=== PATIENT | female | born 1985 | race Two or more races ===

== ENCOUNTER 2018-03-14 23:28 | Emergency (ER) | payer BC ==
[2018-03-14 23:33] VITALS: TEMP 98.4; O2SAT 100
[2018-03-15 00:27] LABS: BASO # 0.1 K/uL (0.0-0.2); BASO % 0.6 % (0.0-2.0); EOS # 0.2 K/uL (0.0-0.7); EOS % 1.7 % (0.0-4.0); HEMOGLOBIN 11.8 g/dL (12.0-16.0); LYMPH # 2.9 K/uL (1.0-4.3); LYMPH % 26.3 % (20.0-40.0); MEAN CELL VOLUME 88.5 fl (81.0-99.0); MEAN CORPUSCULAR HEMOGLOBIN 30.1 pg (27.0-31.0); MEAN PLATELET VOLUME 7.9 fl (7.2-11.7); MONO # 0.9 K/uL (0.0-0.8); NEUT # 6.9 K/uL (1.8-7.0); NEUT % 63.4 % (50.0-75.0); RBC 3.92 Mil/uL (3.80-5.20); RED CELL DISTRIBUTION WIDTH 14.3 % (11.5-14.5)
--- NOTE | 2018-03-15 00:29 | ED PDOC ---
HPI: Psych/Substance Abuse Time Seen by Provider: 03/14/18 23:36 Chief Complaint (Nursing): Substance Abuse Chief Complaint (Provider): Light Headedness, Dizziness, Nausea History Per: Patient History/Exam Limitations: no limitations Onset/Duration Of Symptoms: Hrs (x2) Current Symptoms Are (Timing): Still Present Additional History Per: EMS Additional Complaint(s): 32 year old female with no pmhx presents to the ED for evaluation of nausea, light headedness, and dizziness for the past two hours after eating a cookie containing marijuana. Pt states she was aware there was marijuana in the cookie, but has never previously had any of the substance before. Otherwise, she denies chest pain, vomiting, and associated drug or alcohol use. PMD: Jol[place] Past Medical History Reviewed: Historical Data, Nursing Documentation, Vital Signs Vital Signs: Last Vital Signs Temp 98.4 F 03/14/18 23:29 Pulse 132 H 03/14/18 23:29 Resp 18 03/14/18 23:29 BP 141/73 03/14/18 23:29 Pulse Ox 100 03/14/18 23:29 - Medical History PMH: No Chronic Diseases - Surgical History Surgical History: No Surg Hx - Family History Family History: States: Unknown Family Hx - Social History Current smoker - smoking cessation education provided: No Alcohol: Occasional Drugs: Cannabis - Allergies Allergies/Adverse Reactions: Allergies Allergy/AdvReac Type Severity Reaction Status Date / Time No Known Allergies Allergy Verified 03/14/18 23:33 Review of Systems ROS Statement: Except As Marked, All Systems Reviewed And Found Negative Cardiovascular: Positive for: Light Headedness. Negative for: Chest Pain Gastrointestinal: Positive for: Nausea. Negative for: Vomiting Neurological: Positive for: Dizziness Physical Exam - Reviewed Nursing Documentation Reviewed: Yes Vital Signs Reviewed: Yes - Physical Exam Appears: Positive for: No Acute Distress (but anxious appearing) Head Exam: Positive for: ATRAUMATIC, NORMOCEPHALIC Skin: Positive for: Normal Color, Warm, Dry Eye Exam: Positive for: Normal appearance ENT: Positive for: Normal ENT Inspection Neck: Positive for: Normal, Painless ROM, Supple Cardiovascular/Chest: Positive for: Regular Rate, Rhythm. Negative for: Murmur Respiratory: Positive for: Normal Breath Sounds. Negative for: Accessory Muscle Use, Respiratory Distress Gastrointestinal/Abdominal: Positive for: Normal Exam, Soft. Negative for: Tenderness Back: Positive for: Normal Inspection Extremity: Positive for: Normal ROM Neurologic/Psych: Positive for: Alert, Oriented (x3) - Laboratory Results Result Diagrams: 03/15/18 00:24 03/15/18 00:24 - ECG O2 Sat by Pulse Oximetry: 100 (RA) Pulse Ox Interpretation: Normal Medical Decision Making Medical Decision Making: Time: 2340 Initial Impression: 32 year old female with nausea, lightheadedness, and dizziness after ingesting marijuana Initial Plan: --EKG --Alcohol serum --CMP --Drug screen --CBC with differential --Normal saline IV --Zofran Inj 4mg IV --Accucheck 0225 Patiet feels better and requests discharge. On reevaluation, patient reports improvement of her symptoms and is stable for discharge with the diagnosis of cannabis use Scribe Attestation: Documented by Camelia Balderrama, acting as a scribe for Surya Galo MD. Provider Scribe Attestation: All medical record entries made by the Scribe were at my direction and personally dictated by me. I have reviewed the chart and agree that the record accurately reflects my personal performance of the history, physical exam, medical decision making, and the department course for this patient. I have also personally directed, reviewed, and agree with the discharge instructions and disposition. Disposition - Clinical Impression Clinical Impression: Marijuana use - Patient ED Disposition Is Patient to be Admitted: No Counseled Patient/Family Regarding: Studies Performed, Diagnosis - Disposition Disposition: Routine/Home Disposition Time: 02:29 Condition: STABLE Forms: [employer] ([place])
[2018-03-15 00:37] LABS: ALB/GLOB RATIO 1.4 (1.0-2.1); ALBUMIN 3.9 g/dL (3.5-5.0); ALT/SGPT 28 U/L (9-52); AST/SGOT 22 U/L (14-36); BLOOD UREA NITROGEN 17 mg/dl (7-17); CALCIUM 8.9 mg/dL (8.4-10.2); GFR NON-AFRICAN AMERICAN > 60
[2018-03-15] MEDS: Sodium Chloride 0.9% 1,000 ML IV STA (00:45)
[2018-03-15 06:37] VITALS: BP 137/70; PULSE 90; RESP 16
--- NOTE | 2018-03-15 09:17 | CARD ---
APPROVED REPORT Date of service: 03/15/2018 EKG Measurement Heart [id number] <Conclusion> Sinus tachycardia Incomplete right bundle branch block Abnormal ECG
== END 2018-03-15 02:25 | disposition home or self-care (01) ==
LOC: H.ER 23:28
DX: F12.90 Cannabis use, unspecified, uncomplicated (principal); R42 Dizziness and giddiness
CPT/HCPCS: 80053; 82948; 85025; 93005; 96360; 99283; J2405; J7030